=== PATIENT | female | born 1990 | race Two or more races ===

== ENCOUNTER 2018-09-19 14:52 | Observation (INO) | payer MEDICAID, OTHER ==
[~2018-09-19] VITALS: Ht 167.6 cm; Wt 84.8 kg
[2018-09-19] MEDS ORDERED: LACTATED RINGERS 1,000 ML IV SCH (15:45)
[2018-09-19 16:18] LABS: CLARITY URINE CLOUDY (CLEAR); COLOR URINE YELLOW (YELLOW); KETONES URINE NEGATIVE (NEGATIVE); LEUKOCYTE ESTERASE URINE 1+ (NEGATIVE); NITRITE URINE NEGATIVE (NEGATIVE); OCCULT BLOOD URINE NEGATIVE (NEGATIVE); PH URINE 6.5 (4.5-8.0); PROTEIN URINE NEGATIVE (NEGATIVE); SPECIFIC GRAVITY URINE 1.025 (1.005-1.030)
[2018-09-19] MEDS ORDERED: PNV1TABL50 PO (17:03)
== END 2018-09-19 18:00 | disposition home or self-care (01) ==
LOC: 8 EST LDRP 14:52
PROVIDERS: ADMIT Obstetrics & Gynecology; ATTEND Obstetrics & Gynecology
DX: O26.893 Other specified pregnancy related conditions, third trimester (principal); R10.30 Lower abdominal pain, unspecified; M54.9 Dorsalgia, unspecified; R10.2 Pelvic and perineal pain; Z3A.33 33 weeks gestation of pregnancy
CPT/HCPCS: 76815; 76818; 81003; 99281; G0378; 96360; 96361

== ENCOUNTER 2018-11-04 21:51 | Inpatient (IN) | payer MEDICAID ==
[~2018-11-04] VITALS: Ht 167.6 cm; Wt 89.4 kg
[~2018-11-04 21:51] MED LIST: PNV1TABL50 PO
[2018-11-04] MEDS ORDERED: LACTATED RINGERS 1,000 ML IV SCH (21:59)
[2018-11-04] MEDS ORDERED: METHYLERGONOVINE MALEATE 0.2 MG/ML IM PRN (22:00)
[2018-11-04] MEDS ORDERED: LIDOCAINE HCL 1% 20ML VIAL (Pyxis) INJ INFIL SCH (22:00)
[2018-11-04] MEDS ORDERED: DEXT 5%/LR + PITOCIN 20UNITS/L 1,000 ML IV SCH (22:00)
[2018-11-04] MEDS ORDERED: CARBOPROST TROMETHAMINE 250 MCG/ML AMPUL IM PRN (22:00)
[2018-11-04] MEDS ORDERED: NALOXONE HCL 0.4 MG/ML 1ML VIAL IM PRN (22:00)
[2018-11-04] MEDS ORDERED: PENICILLIN G POTASSIUM 5 MMU in DEXT 5% WATER 100 ML IV SCH (22:30)
[2018-11-04] MEDS: BUTORPHANOL TARTRATE 2 MG/ML VIAL IV PRN (22:30)
[2018-11-04 22:56] LABS: BASOPHILS % 0.4 % (0.0-2.0); CLARITY URINE CLOUDY (CLEAR); COLOR URINE YELLOW (YELLOW); EOSINOPHILS % 0.6 % (0.0-5.0); HEMATOCRIT. 35.3 % (36.0-48.0); HEMOGLOBIN. 11.6 g/dL (12.0-16.0); KETONES URINE NEGATIVE (NEGATIVE); LEUKOCYTE ESTERASE URINE 3+ (NEGATIVE); LYMPHOCYTES % 21.9 % (20.0-50.0); MEAN CORPUSCULAR HEMOGLOBIN 27.2 pg (28.0-32.0); MEAN CORPUSCULAR VOLUME 82.3 fL (81.0-99.0); MEAN PLATELET VOLUME 9.6 fl (7.4-10.4); MONOCYTES % 8.9 % (2.0-8.0); NEUTROPHILS % 68.2 % (40.0-76.0); NITRITE URINE POSITIVE (NEGATIVE); OCCULT BLOOD URINE 1+ (NEGATIVE); PH URINE 6.5 (4.5-8.0); PLATELET 245 x1000/uL (130-400); PROTEIN URINE NEGATIVE (NEGATIVE); RED BLOOD CELL COUNT 4.29 mill/uL (4.2-5.4); RED CELL DISTRIBUTION WIDTH 14.7 % (11.6-14.6); UROBILINOGEN URINE 0.2 E.U./dL (0.2-1.0)
[2018-11-04 23:03] LABS: INR 0.9; PARTIAL THROMBOPLASTIN TIME 35.3 sec (23.4-31.0); PROTHROMBIN TIME 9.4 sec (9.1-11.1)
[2018-11-04 23:05] LABS: *AMPHETAMINES SCREEN URINE NEGATIVE (NEGATIVE); *BARBITURATES SCREEN URINE NEGATIVE (NEGATIVE); *BENZODIAZEPINES SCREEN URINE NEGATIVE (NEGATIVE)
[2018-11-04 23:06] LABS: *COCAINE SCREEN URINE NEGATIVE (NEGATIVE); CANNABINOID URINE SCREEN NEGATIVE (NEGATIVE); METHADONE URINE SCREEN NEGATIVE (NEGATIVE); OPIATES URINE SCREEN NEGATIVE (NEGATIVE); PHENCYCLIDINE URINE SCREEN NEGATIVE (NEGATIVE)
[2018-11-04 23:32] LABS: HEPATITIS B SURFACE ANTIGEN NEGATIVE
[2018-11-05] MEDS: BUTORPHANOL TARTRATE 2 MG/ML VIAL IV PRN (00:57)
[2018-11-05] MEDS ORDERED: DEXT 5%/LR + PITOCIN 20UNITS/L 1,000 ML IV SCH (01:48)
[2018-11-05] MEDS ORDERED: LANOLIN OINT 0.25 GM TUBE TOP PRN (02:00)
[2018-11-05] MEDS ORDERED: DIPHENHYDRAMINE 25MG CAPSULE PO PRN (02:00)
[2018-11-05] MEDS ORDERED: IBUPROFEN 400MG TABLET PO PRN (02:00)
[2018-11-05] MEDS ORDERED: BISACODYL 10MG SUPP PR PRN (02:00)
[2018-11-05] MEDS ORDERED: GLYCERIN/WITCH HAZEL LEAF MEDICATED PAD TOP PRN (02:00)
[2018-11-05] MEDS ORDERED: HEMORRHOIDAL SUPP PR PRN (02:00)
[2018-11-05] MEDS ORDERED: PENICILLIN G POTASSIUM 2.5 MMU in DEXTROSE 5% WATER 50 ML IV SCH (02:30)
[2018-11-05] MEDS: IBUPROFEN 800MG TABLET PO PRN ×2 (03:07→12:40)
[2018-11-05 03:20] VITALS: BP 133/55
[2018-11-05 03:50] VITALS: BP 128/56
[2018-11-05 04:20] VITALS: BP 109/50
[2018-11-05] MEDS ORDERED: INFLUENZA VIRUS VACCINE(AFLURIA) 0.5ML SYR IM ONE (06:00)
[2018-11-05] MEDS ORDERED: TETANUS, DIPHTHERIA, PERTUSSIS VAC/PF 0.5ML (>7YR OLD) IM ONE (06:00)
[2018-11-05 09:00] VITALS: BP 106/57
[2018-11-05] MEDS: PRENATAL VIT/FE FUMARATE/FA TABLET PO SCH (09:00)
[2018-11-05] MEDS ORDERED: SULFAMETHOXAZOLE/TRIMETHOPRIM 400/80MG TAB PO SCH ×2 (14:30→21:00)
[2018-11-05 17:00] VITALS: BP 109/64
[2018-11-05] MEDS: NITROFURANTOIN 100MG M/M CAPSULE PO SCH (19:00)
[2018-11-05 19:45] VITALS: BP 114/59
[2018-11-05] MEDS: DOCUSATE SODIUM 100MG CAPSULE PO SCH (20:47)
[2018-11-06 04:50] VITALS: BP 127/68
[2018-11-06 07:36] LABS: BASOPHILS % 0.5 % (0.0-2.0); EOSINOPHILS % 1.1 % (0.0-5.0); HEMATOCRIT. 30.4 % (36.0-48.0); HEMOGLOBIN. 10.3 g/dL (12.0-16.0); LYMPHOCYTES % 29.4 % (20.0-50.0); MEAN CORPUSCULAR VOLUME 82.7 fL (81.0-99.0); MEAN PLATELET VOLUME 9.3 fl (7.4-10.4); MONOCYTES % 8.3 % (2.0-8.0); NEUTROPHILS % 60.7 % (40.0-76.0); PLATELET 196 x1000/uL (130-400); RED BLOOD CELL COUNT 3.68 mill/uL (4.2-5.4); RED CELL DISTRIBUTION WIDTH 14.5 % (11.6-14.6)
[2018-11-06 08:00] VITALS: BP 104/66
[2018-11-06] MEDS: NITROFURANTOIN 100MG M/M CAPSULE PO SCH ×2 (09:15→16:24)
[2018-11-06] MEDS: PRENATAL VIT/FE FUMARATE/FA TABLET PO SCH (09:16)
[2018-11-06] MEDS: FERROUS SULFATE 325MG TABLET PO SCH ×3 (09:16→16:24)
[2018-11-06] MEDS: IBUPROFEN 800MG TABLET PO PRN ×2 (09:16→16:24)
[2018-11-06 14:53] VITALS: BP_SYST 103; BP_SYST 119; BP_DIAS 56; BP_DIAS 67
[2018-11-06 20:00] VITALS: BP 139/63
[2018-11-06] MEDS: DOCUSATE SODIUM 100MG CAPSULE PO SCH (20:56)
[2018-11-06] MEDS: ACETAMINOPHEN WITH CODEINE 300/30MG TABLET PO PRN (20:56)
[2018-11-07] MEDS: IBUPROFEN 800MG TABLET PO PRN ×2 (01:05→09:23)
[2018-11-07 03:41] VITALS: BP 111/58
[2018-11-07] MEDS: ACETAMINOPHEN WITH CODEINE 300/30MG TABLET PO PRN (06:44)
[2018-11-07 08:00] VITALS: BP 116/64
[2018-11-07] MEDS: PRENATAL VIT/FE FUMARATE/FA TABLET PO SCH (09:23)
[2018-11-07] MEDS: FERROUS SULFATE 325MG TABLET PO SCH (09:23)
[2018-11-07] MEDS: NITROFURANTOIN 100MG M/M CAPSULE PO SCH (09:23)
== END 2018-11-07 12:25 | disposition home or self-care (01) | DRG 560 ==
LOC: 8 EST LDRP 21:51 → OBSVTOIN 21:51 → 8EST 11-05 03:15
PROVIDERS: ADMIT Specialist; ATTEND Specialist
PROC: 10E0XZZ Delivery of Products of Conception, External Approach (ICD-10-PCS; principal; 2018-11-05)
DX: O48.0 Post-term pregnancy (principal); O23.43 Unspecified infection of urinary tract in pregnancy, third trimester; O90.81 Anemia of the puerperium; D64.9 Anemia, unspecified; Z37.0 Single live birth; Z3A.40 40 weeks gestation of pregnancy; Z91.018 Allergy to other foods
CPT/HCPCS: 36415; 80305; 86592; 86703; 86762; 86850; 86900; 87340; 90686; 90715; 99281; G0378; J0595; J2310; J2540; J2590; J3490; J7060